=== PATIENT | female | born 1970 | race Caucasian/White ===

== ENCOUNTER 2019-07-05 20:25 | Emergency (ER) | payer MEDICAID ==
[~2019-07-05] VITALS: Ht 162.6 cm; Wt 73.0 kg
[2019-07-05] MEDS ORDERED: KETOROLAC 30MG/ML VIAL IV STA (20:55)
[2019-07-05] MEDS ORDERED: ONDANSETRON HCL 4MG/2ML INJ IV STA (20:55)
[2019-07-05] MEDS ORDERED: SODIUM CHLORIDE 0.9% 1,000 ML IV ONE (20:55)
[2019-07-05 22:20] LABS: HCG SCREEN NEGATIVE
[2019-07-06 01:40] VITALS: BP 104/71
== END 2019-07-06 01:45 | disposition home or self-care (01) ==
LOC: ER 20:25
DX: S30.0XXA Contusion of lower back and pelvis, initial encounter (principal); W01.0XXA Fall on same level from slipping, tripping and stumbling without subsequent striking against object, initial encounter; Y93.89 Activity, other specified; Y92.512 Supermarket, store or market as the place of occurrence of the external cause
CPT/HCPCS: 72131; 84703; 96374; 96375; 99284; J1885; J2405; J7030